=== PATIENT | male | born 1985 | race Caucasian/White ===

== ENCOUNTER 2022-07-02 06:33 | Inpatient (IN) | payer OTHER, SELFPAY ==
[2022-06-28 09:24] VITALS: BMI 46.6
[2022-07-02] VITALS (12 sets, daily range): BP systolic 116–163; BP diastolic 68–97; PULSE 82–120; RESP 12–95; TEMP 36.2–37.5; O2SAT 5–98; BMI 46.6
[2022-07-02] MEDS: LACTATED RINGERS 1,000 ML 84 ML IV ×2 (07:16→09:34)
[2022-07-02 07:42] LABS: COVID19 -Nasal RAPID Negative (Negative)
--- NOTE | 2022-07-02 07:44 | PM.PREOP ---
Pre-operative Note COVID-19 COVID-19 status: Negative Result date/Date tested (Pos, Neg/Pending): 07/01/22 Criteria for continued procedure: Expected advancement of disease process, Possibility delay results in more complex future surgery or treatment, Increased loss of function, Continuing or worsening of significant or severe pain and Deterioration of the patient's condition or overall health Interval Note History & Physical reviewed/Exam performed by Physician: Yes Changes to H&P: No
[2022-07-02] MEDS: CEFAZOLIN 2 GM/100 ML PREMIX 100 ML IV ×3 (08:00→23:35)
[2022-07-02] MEDS: BUPIVACAINE 0.25% (PF) 30 ML, EPINEPHrine 0.3 MG INJ (08:30)
--- NOTE | 2022-07-02 08:42 | SUR.OPER ---
Prone on spine table, head in foam head support, padded chest and pelvic supports, gel pad at knees, lower legs supported by pillows; nipples, genitalia and toes free of pressure, arms secured on foam padded arm boards at <90 degrees abduction. Tape over blanket at thigh secured to table.
[2022-07-02] MEDS: ACETAMINOPHEN IV 1,000 MG/100 ML VIAL 400 MG IV (09:00)
[2022-07-02] MEDS: BUPIVACAINE LIPOSOME 266 MG/20 ML VIAL INJ (11:30)
--- NOTE | 2022-07-02 11:30 | DI.RAD.S_ITS ---
PROCEDURE: XR LUMBAR SPINE 2-3V INDICATIONS: L4-5, L5-S1 TLIF TECHNIQUE: 2 intraoperative views of the lumbar spine were acquired. COMPARISON: None. FINDINGS: Intraoperative images demonstrate lumbar fusion hardware. IMPRESSION: Lumbar fusion. Dictated by: Sharyn Larry M.D. on 07/02/2022 at 13:18 Transcribed by: FABIAN on 07/02/2022 at 13:18 Approved by: Sharyn Larry M.D. on 07/02/2022 at 16:47
--- NOTE | 2022-07-02 11:57 | P.OP_ITS ---
Operative Date/Time/Diagnoses Date of procedure: 07/02/22 Time of procedure: 07:40 Pre-op diagnosis: 1. L4-5, L5-S1 spondylolisthesis 2. L4-5, L5-S1 spinal stenosis with radiculopathy Post-op diagnosis: same Procedure & Clinicians Procedure: 1. L4-5, L5-S1 Postero-lateral and posterior interbody fusion 2. L4-5, L5-S1 interbody cage placement. 3. L4-5, L5-S1 decompressive laminectomy with bilateral facetecomies 4. L4-5, L5-S1 Posterior segmental instrumentation 5. Mobile of bone marrow from iliac crest 6. Utilization of microsurgical technique and operating microscope 7. Utilization of robotic assisted Navigation Same procedure as scheduled: Yes Indications: Patient has been having chronic back pain and worsening lumbar radiculopathy. Patient failed multiple conservative management with worsening pain weakness and numbness in his lower extremity. Patient has been having difficulty performing activity of daily living. After discussing risks benefits of treatment options, patient elected proceed with surgery. Surgeon: Kapil Roberson Progress Developer: Salena Kramer Click Yes if Unassisted: No Anesthesia Type: General Operative Notes Closure Type: primary Specimen(s): none sent Prosthetic devices, grafts, tissues, transplants, or devices: Globus CREO MIS screws, Rise cages Applied: catheter Estimated Blood Loss (mL): 150 Blood products transfused: none Procedure in detail: Patient was seen in the preoperative area. Risks and benefits of the surgery was discussed with the patient. Informed consent was obtained from the patient and placed in the chart. Surgical site was marked. Patient was taken to the operative room. General anesthesia was administered. Prophylactic antibiotic was given to the patient less than 30 min before the incision was made. Patient was placed into a prone position on the Timmy table. Patient's back was then prepped and draped in the sterile fashion. Time-out was performed at this time. After patient was prepped and draped, patient's PSIS was palpated and marked bilaterally. Small 1 cm incision was made over the PSIS for placement of the reference probes. Two trocar was placed into the PSIS 1 on each side. The reference probe was attached to the trocar of the reference apparatus. At this time the C-arm imaging was used to confirm AP and lateral of L4-L5, L5- S1 vertebrae and merged the C-arm imaging using the Healint robotic navigation system with the CT of the lumbar spine. After successful merging was completed and confirmed, skin marker was used to jayesh out the skin incision using the Healint robotic arm. Bilateral incision was made at this time. Pre templated trajectory was used and guided using the Healint robotic navigation system for bilateral L4, L5, S1 pedicle screw placement. This was done by using the robotic arm to guide the high-speed bur to make a cortical entry point. Next a drill was placed also using the robotic arm and guided using the navigation system drilling partially through bilateral L4, L5 and S1 pedicles. Next L4, L5, S1 pedicle screws it was pre templated and measured was placed onto the power concrete truck driver and inserted into the pedicles bilaterally. After all 6 screws were placed C-arm imaging was taken of both AP and lateral to confirm the placement. Excellent placement of the screws were confirmed and a matched precisely with the pre planned screw placement using the navigation system. MARs retractor was inserted using Fabbeoivation guidence. Globus MARS retractors was placed inside the incision and docked onto the L4 and L5 lamina. Using microsurgical technique and operating microscope, a L4, L5 laminectomy and L4-5, L5-S1 facetectomy was performed using a Kerrison rongeur. Patient was found have severe lateral recess and neural foramen stenosis which was fully decompressed after the laminectomy facetectomy. More than 75% of the facets were removed during the process of decompression rendering L4-5, L5-S1 level grossly unstable and required a fusion procedure at the same time. The disc space at L4-5, L5-S1 was identified, and a total diskectomy was performed at L4- 5, L5-S1 level. The endplates were decorticated using a rasp and shaver. The total diskectomy and decortication was performed at L4-5, L5-S1 level in order to to accomplish a L4-5, L5-S1 fusion. The local bone from the laminectomy and facetectomy was saved for local bone grafting. After the total diskectomy and decortication was completed, Trifecta bone graft material was combined with local bone that was harvested earlier. At this time, a separate skin is incision was made over the iliac crest. A Jamshidi needle was inserted into the iliac crest through a separate skin incision. 5 cc of bone marrow aspiration was obtained through the separate skin incision using a Jamshidi needle from the iliac crest. The bone marrow aspiration was combined with local bone and the Trifecta bone grafting material. The bone grafting material was placed into the L4-5, L5-S1 interbody space a long with a expandable cage. The cage was expanded to its maximum height using the torque limiting screwdriver. The disc preparation as well as the cage insertion were also performed under navigation guidance. After the cage was placed, AP and lateral C-arm imaging was taken to confirm placement of the cage and excellent position was confirmed. Globus MARS retractor was inserted and docked onto the L4-5, L5-S1 posterolateral gutter on the right side. Using the power drill, posterior- lateral decortication was performed at L4-5, L5-S1 level until bleeding cortical bone was identified. The remaining bone grafting material was placed into the L4-5, L5-S1 posterior lateral gutter he order to accomplish posterolateral fusion at the L4-5, L5-S1 level. At this time the tulips were attached to the L4, L5, S1 pedicle screw shanks. After measuring the length of the rods, they were inserted into the tulips of the pedicle screws and locked in place using locking caps and torque limiting screwdriver bilaterally. Total 6 caps and 2 titanium rods was used in order to complete the posterior instrumentation construct. After all the hardware was placed, and confirmed with AP and lateral C-arm imaging, the wound was then irrigated with sterile normal saline and packed with Ray-Sergio gauze for 3 min to accomplish hemostasis. After the gauze was removed the deep fascia was closed with #1 Vicryl suture. The subcutaneous layer was closed with 2-0 Vicryl. The skin was closed with skin elia. Patient tolerated the procedure well. There were no complications. Neuro monitoring system was used to monitor patient's neurologic status throughout entire procedure. There was no disturbance of the neural monitoring signals throughout the case. Complications: none Post-operative Condition: stable Disposition: PACU Plan for aftercare: Admit to inpatient hospital
[2022-07-02] MEDS: OXYCODONE IR 5 MG TABLET PO (12:26)
--- NOTE | 2022-07-02 12:33 | SUR.PHASEI ---
attempted to call report to floor, pt going to 210.
[2022-07-02] MEDS: HYDROMORPHONE 0.5 MG INJ IV ×4 (13:03→19:38)
[2022-07-02] MEDS: hydrOXYzine pamoate 25 MG CAPSULE PO ×2 (13:13→23:34)
[2022-07-02] MEDS: MAGNESIUM HYDROXIDE 30 ML UDC PO (14:27)
[2022-07-02] MEDS: ACETAMINOPHEN 325 MG TABLET 650 MG PO ×2 (14:27→18:45)
[2022-07-02] MEDS: GABAPENTIN 300 MG CAPSULE 900 MG PO (14:27)
[2022-07-02] MEDS: ONDANSETRON 4 MG ODT SL (14:28)
[2022-07-02] MEDS: polyethylene glycoL 3350 17 GM POWD.PACK PO (14:28)
[2022-07-02] MEDS: methocarbamoL 500 MG TABLET 750 MG PO ×2 (14:33→20:26)
[2022-07-02] MEDS: LACTATED RINGERS 1,000 ML 125 ML IV (14:39)
[2022-07-02] MEDS: OXYCODONE IR 5 MG TABLET 10 MG PO ×2 (15:31→18:45)
--- NOTE | 2022-07-02 16:20 | PT.IIE ---
Current Diagnoses Spondylolisthesis, lumbar region (07/02/22) Spinal stenosis, lumbar region with neurogenic claudication (07/02/22) Surgery Performed Operation Date: 07/02/22 07:45 Actual Procedures p L4-5, L5-S1 TLIF w. posterior instrumentation -Robot - Kapil Roberson MD Surgical History (Last Updated 06/28/22 @ 10:15 by Lesia Chadwick, RN) Hx of appendectomy Hx of arthroscopy of left knee Hx of cholecystectomy Transgender with history of gender affirmation surgery (2018) Medical History (Last Updated 06/28/22 @ 10:33 by Lesia Chadwick RN) Anesthesia complication Anxiety Asthma Complex posttraumatic stress disorder Eczema Fibromyalgia Gout History of COVID-19 (04/2021) HLD (hyperlipidemia) HTN (hypertension) IBS (irritable bowel syndrome) Neck pain VIELKA (obstructive sleep apnea) Sciatica Spinal stenosis Physical Therapy Inpatient Evaluation/Re-Eval M1 PT/OT-IP Prior Functional Status Start: 07/02/22 15:53 Freq: NEEDED Status: Active Protocol: Document 07/02/22 16:20 AW (Rec: 07/02/22 16:43 AW [id number]) Medical Review Prior Functional Status Medical History Reviewed Yes Communication WNL Mobility and Gait Independent but with a limp occasionally Activities of Daily Living and IADL's Independent except for needing occasional assist with lower body dressing Social History Household Members spouse Living Arrangements House Number of Floors (Floors) One Floor Home Environment Standard Height Toilet,Walk in Shower,Ramp Home Equipment Front Wheel Walker,Straight Cane,Grab Bars In Shower Employment Status [employer] Employed Additional Social History Comment Pt lives with his spouse, Oscar, who has taken two weeks off to assist after surgery. 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 M2 PT-IP Current Condition Start: 07/02/22 15:53 Freq: NEEDED Status: Active Protocol: Document 07/02/22 16:20 AW (Rec: 07/02/22 16:43 AW [id number]) Physical Therapy Current Condition Current Condition Evaluation Date 07/02/22 Treatment Diagnosis s/p L4-5 L5-S1 TLIF Onset Date 06/2422 M3 PT-IP Subjective Start: 07/02/22 15:53 Freq: NEEDED Status: Active Protocol: Document 07/02/22 16:20 AW (Rec: 07/02/22 16:43 AW [id number]) Subjective Physical Therapy Visit Type Type Initial Evaluation Visit Start Time 15:59 Visit Stop Time 16:20 Total Visit Minutes 21 Physical Therapy Visit Comments Patient Comments Pt would like to get out of bed Therapy Pain Assessment Pain When Pain Assessed During Mobility Pain Present Pain Present Pain Reported Location back Scale Used 5 Description With Movement Pain Management Techniques Distraction,Re-positioning, Timing of Activity with Medications M4 PT-IP Mobility and Gait Start: 07/02/22 15:53 Freq: NEEDED Status: Active Protocol: Document 07/02/22 16:20 AW (Rec: 07/02/22 16:43 AW [id number]) PT-Bed Mobility Assessment Rolling Type of Rolling Log Rolling,Roll to Left Level of Assist Minimal Assistance,1 Person Assistance Supine to Sit Supine to Sit Contact Guard Assistance Scooting Scooting to Edge of Bed Standby Assistance PT-Transfer Assessment Sit to and From Stand Sit to and from Stand Standby Assistance,Use of Upper Extremities Equipment Transfer Assistive Device Front Wheeled Walker Orthotic/Prosthetic Devices or Brace: No Transfers Transfer Destination Chair Transfer Technique Stand Step Pivot Transfer Ability Level of Assist Standby Assistance Comments Mobility Comments Pt was lying in bed with his at bedside. He was agreeable to PT assessment. Educated pt and his spouse on post op precautions and log roll technique. Pt needed min A to log roll to his left side and CGA to transition from sidelying to sitting. Pt was able to scoot forward using UE push. He stood SBA and used FWW to steady himself. He walked toward the window with FWW and then around the room with good awareness of all precautions. He sat on the chair and then demonstrated good hip hinge form during another rep of sit <> stand. Pt was left in the chair with call light handy. Gait Assessment Gait Gait Assistance Required: Standby Assistance Distance (Feet) 40 Assistive Devices Assistive Device Front Wheeled Walker Gait Deviations General Gait Pattern Antalgic,Decreased Stride Length,Decreased Feet Clearance Factors Limiting Gait Function Factors Limiting Gait Function Pain Stair Climbing Assessment Comments Stair Climbing Comments Not assessed. Pt has ramped entry at home. PT-Balance Assessment Sitting Balance and Reactions Static Sitting Balance Ability Good Dynamic Sitting Balance Ability Good Standing Balance and Reactions Static Standing Balance Ability Good Dynamic Standing Balance Ability Good Device Used FWW M5 PT-IP Objective Assessments Start: 07/02/22 15:53 Freq: NEEDED Status: Active Protocol: Document 07/02/22 16:20 AW (Rec: 07/02/22 16:43 AW [id number]) Orientation Orientation/Cognition Level of Alertness Alert Orientation Name,Day of Week,Place, Situation Language Function Ability No Deficits Noted Memory Description No Deficits Noted Gross Range of Motion Upper Extremity ROM Assessment Within Functional Limits Lower Extremity ROM Assessment Within Functional Limits Strength Upper Extremity Strength Assessment Within Functional Limits Lower Extremity Strength Assessment Within Functional Limits Sensation Assessment Sensation Gross Sensation WNL M6 PT-IP Treatment Start: 07/02/22 15:53 Freq: NEEDED Status: Active Protocol: Document 07/02/22 16:20 AW (Rec: 07/02/22 16:43 AW [id number]) Physical Therapy Treatment Education Education Provided Precautions,Post-Op Packet, Safety M7 PT-IP Assessment and Plan Start: 07/02/22 15:53 Freq: NEEDED Status: Active Protocol: Document 07/02/22 16:20 AW (Rec: 07/02/22 16:43 AW [id number]) PT Summary Assessment and Plan Potential Rehabilitation Potential Excellent Summary Impairments Pain,Bed Mobility,Transfers, Gait Assessment Summary Carlos is a 36 yo man seen for PT evaluation on POD0 following L4-5 L5-S1 TLIF. He is independent in all regards at baseline. CLOF: Pt benefitted from cues and assist to complete log roll bed mobility. All other transfers and gait were grossly SBA with FWW. Pt tends to use the walker for stability and is not doing excessive UE weightbearing. He occasionally lifts the walker to carry it past obstacles. Pt would benefit from one or two more acute PT sessions to reinforce log roll technique and to ensure smooth mobility progression toward recommended return home with spouse support. Goals Bed Mobility Goal Standby Assistance Transfer Goal Independent,Front Wheeled Walker Gait Goal Independent,Front Wheel Walker Gait Distance 200 Days to Meet Goals 2 Frequency of Treatment Frequency Of Treatment Twice a Day Treatment Plan Physical Therapy Treatment Plan Bed Mobility Training,Transfer Training,Gait Training, Therapeutic Exercise,Balance Retraining,Hot or Cold Pack, Neuromuscular Re-ed Other Recommendations and Next Treatment bed mobility practice (in and Focus out, possibly to right and left depending on home set up) ; progress gait distance with or without FWW Precautions Lumbar Precautions Log Roll,No Twisting,Limit Bending,Lifting Restriction of 10 lbs,Gait Belt above Incisional Area Recommendations To Nursing Amount of Assist Needed Standby Assistance Discharge Recommendations PT Discharge Recommendations Home with Assistance Transportation Needs at Discharge Private Vehicle
--- NOTE | 2022-07-02 19:50 | PC.NURSE ---
1300: new admit from PACU s/p TLIF L4-L5-S1 patient tearful, reporting pain 8/10 spo2 88% RA, o2 applied to get sats up to 95%. IVF LR at 125/hour. bandage to back is CDI, no shadow drainage. call to dr holman to request Oxy 10mg as this was given in pacu. new order received. pain controlled w/ PO oxy, robaxin, gabapentin, and dilauded IVP. henriquez is patent draining large amount of yellow urine to gravity. herb is in the room and staying over night. PT assisted patient out of bed, SBA w/ FWW. 1700: pain well controlled, patient is doing well. requesting dc henriquez, ability to be independant OOB. encouraged him to wait til OOB a few more times. tolerating RA. report to NOC.
[2022-07-02] MEDS: BUSPIRONE 5 MG TABLET 15 MG PO (20:15)
[2022-07-02] MEDS: VENLAFAXINE ER 75 MG CAP 225 MG PO (20:16)
[2022-07-02] MEDS: DOCUSATE 100 MG CAPSULE PO (20:16)
[2022-07-02] MEDS: MIRTAZAPINE 15 MG TABLET PO (20:17)
[2022-07-02] MEDS: ATORVASTATIN 20 MG TABLET 40 MG PO (20:17)
[2022-07-02] MEDS: TRAZODONE 50 MG TABLET 100 MG PO (20:17)
[2022-07-02] MEDS: SENNOSIDES 8.6 MG TABLET 17.2 MG PO (20:18)
[2022-07-02] MEDS: MELOXICAM 7.5 MG TABLET 15 MG PO (20:18)
[2022-07-02] MEDS: lisinopriL 10 MG TABLET PO (20:19)
[2022-07-02] MEDS: METOPROLOL ER 50 MG TABLET PO (20:19)
[2022-07-02] MEDS: PANTOPRAZOLE DR 40 MG TABLET PO (20:20)
[2022-07-02] MEDS: OXYCODONE IR 5 MG TABLET 15 MG PO (21:02)
[2022-07-02] MEDS: HYDROMORPHONE 1 MG INJ IV (23:31)
[2022-07-03 00:47] VITALS: BP 103/57; PULSE 90; RESP 18; TEMP 37.1; O2SAT 93
[2022-07-03 00:52] VITALS: BP 103/57; PULSE 90
[2022-07-03] MEDS: OXYCODONE IR 5 MG TABLET 15 MG PO ×4 (02:12→11:42)
[2022-07-03 04:00] VITALS: BP 129/64; PULSE 77; RESP 18; TEMP 36.9; O2SAT 96
[2022-07-03] MEDS: ACETAMINOPHEN 325 MG TABLET 650 MG PO (05:15)
[2022-07-03 06:04] LABS: Hematocrit 33.1 % (41-53); Hemoglobin 11.6 g/dL (13.5-17.5)
[2022-07-03] MEDS: methocarbamoL 500 MG TABLET 750 MG PO (06:13)
--- NOTE | 2022-07-03 07:59 | PM.DS.1 ---
History of Present Illness History of Present Illness Chief complaint: TLIF Narrative: Patient is sitting up in bed this morning with significant other at bedside. States that he has been doing well other than a peak in pain last night which was well controlled with medication. He states that he still has some bilateral thigh numbness though he denies any other symptoms. States that he would like to go home today if physical therapy goes well. Discharge Providers Provider Date of admission: 07/02/22 06:33 Discharge Date: 07/03/22 Primary care physician: Doctor Elizabeth MD Consults: 07/02/22 12:54 Consult to Occupational Therapy Evaluate & Treat Comment: Physician Instructions: Evaluate and treat Consult to Physical Therapy Evaluate & Treat Comment: Physician Instructions: Evaluate and Treat Discharge provider: Salena Kramer PA-C Summary Hospital Course Discharge Diagnosis: Status post TLIF Hospital Course: Operative Date/Time/Diagnoses Date of procedure: 07/02/22 Time of procedure: 07:40 Pre-op diagnosis: 1. L4-5, L5-S1 spondylolisthesis 2. L4-5, L5-S1 spinal stenosis with radiculopathy Post-op diagnosis: same Procedure & Clinicians Procedure: 1. L4-5, L5-S1 Postero-lateral and posterior interbody fusion 2. L4-5, L5-S1 interbody cage placement. 3. L4-5, L5-S1 decompressive laminectomy with bilateral facetecomies 4. L4-5, L5-S1 Posterior segmental instrumentation 5. [place] of bone marrow from iliac crest 6. Utilization of microsurgical technique and operating microscope 7. Utilization of robotic assisted Navigation Same procedure as scheduled: Yes Indications: ?Patient has been having chronic back pain and worsening lumbar radiculopathy. Patient failed multiple conservative management with worsening pain weakness and numbness in his lower extremity.? Patient has been having difficulty performing activity of daily living.? After discussing risks benefits of treatment options, patient elected proceed with surgery. Surgeon: Kapil Roberson Char Filter Tank Tender Head: Salena Kramer Click Yes if Unassisted: No Anesthesia Type: General Operative Notes Closure Type: primary Specimen(s): none sent Prosthetic devices, grafts, tissues, transplants, or devices: Globus CREO MIS screws, Rise cages Applied: catheter Estimated Blood Loss (mL): 150 Blood products transfused: none Exam Vital Signs (past 8 hours): - 07/03/22 00:47 07/03/22 00:52 07/03/22 04:00 Temperature 98.7 F 98.4 F Pulse Rate 90 90 77 Respiratory Rate 18 18 Blood Pressure 103/57 L 103/57 L 129/64 Pulse Oximetry 93 96 Oxygen Flow Rate 1 1 Oxygen Delivery Method Room Air Oxygen Flow Rate 1 Narrative Exam Narrative: Awake alert and oriented. Intraoperative dressing clean, dry, and intact with small area of serosanguineous drainage distally. Strength and sensation intact bilateral lower extremities, subjective numbness to bilateral thighs. Bilateral calves soft, compressible, nontender with no palpable cords or masses. Objective Labs 07/03/22 05:38 Labs: Laboratory Results - last 24 hr 07/03/22 05:38 Hgb 11.6 L Hct 33.1 L PFSH Medical History Anesthesia complication Anxiety Asthma Complex posttraumatic stress disorder Eczema Fibromyalgia Gout History of COVID-19 (04/2021) HLD (hyperlipidemia) HTN (hypertension) IBS (irritable bowel syndrome) Neck pain VIELKA (obstructive sleep apnea) Sciatica Spinal stenosis Surgical History Hx of appendectomy Hx of arthroscopy of left knee Hx of cholecystectomy Transgender with history of gender affirmation surgery (2018) Social History household members: spouse Smoking Status: Former smoker alcohol intake: current Discharge Assessment & Plan Assessment and Plan Assessment: Patient is progressing as expected after TLIF Plan of Treatment: Plan to work with physical therapy today. Discharge to home with assistance from significant other when safe and cleared by PT. patient will be discharged with 5 mg oxycodone ordered Q4-6. He may take 1-2 tablets every 4-6 hours. Patient to follow-up with orthopedics 2 weeks after surgery. Discharge Plan Discharge Plan Patient Disposition: Home Provider Discharge Comment: Discharge once safe and cleared by PT Discharge orders & Medications Prescriptions: New oxycodone 5 mg tablet 5 mg PO Q4-6H PRN (Reason: pain) Qty: 40 0RF Continued atorvastatin 40 mg Tablet 40 mg PO BEDTIME metoprolol succinate 50 mg Tablet Extended Release 24 Hr 50 mg PO BEDTIME meloxicam 15 mg Tablet 15 mg PO BEDTIME trazodone 100 mg Tablet 100 mg PO BEDTIME pantoprazole [Protonix] 40 mg Tablet,Delayed Release (Dr/Ec) 40 mg PO BEDTIME lisinopril 10 mg Tablet 10 mg PO BEDTIME testosterone cypionate [Depo-Testosterone] 200 mg/mL Oil 200 mg IM Q2W buspirone 15 mg Tablet 15 mg PO BEDTIME venlafaxine 225 mg Tablet Extended Release 24hr 225 mg PO BEDTIME gabapentin 300 mg Capsule 900 mg PO TID PRN (Reason: Nerve pain) mirtazapine 15 mg Tablet 15 mg PO BEDTIME albuterol sulfate 90 mcg/actuation Hfa Aerosol Inhaler 2 puff INHALATION Q4-6H PRN (Reason: Shortness Of Breath) methocarbamol 750 mg Tablet 750 mg PO Q4H PRN (Reason: Pain) Qty: 40 0RF Follow up/Referrals: Kapil Roberson MD [Physician] - As previously scheduled Doctor Johnson MD [Primary Care Provider] - Diet/Activity/Treatments Diet: Diet as Tolerated Activity: No deep bending, twisting, no lifting over 10 lb. Skin/Wound/Dressing Care Report to your healthcare provider any signs of infection, such as:: chills, fever, night sweats, unusual drainage and unusual redness Dressing: Keep dressing clean, dry, and intact until 2 week follow up with Orthopedics. Visit Report/Discharge Packet Instructions: DI for Transforaminal Lumbar Interbody Fusion Stand Alone Forms: Patient Portal/API, Stroke Signs & Symptoms, Surgery Discharge Discharge Data Primary Care Provider: Doctor Elizabeth Quality VTE Deep Vein Thrombosis/Pulmonary Embolism Present on Admission: No
[2022-07-03 08:00] VITALS: BP 111/71; PULSE 86; RESP 17; TEMP 36.4; O2SAT 96
[2022-07-03] MEDS: DOCUSATE 100 MG CAPSULE PO (08:37)
--- NOTE | 2022-07-03 08:55 | PT.IPTN ---
Current Diagnoses Spondylolisthesis, lumbar region (07/02/22) Spinal stenosis, lumbar region with neurogenic claudication (07/02/22) Surgery Performed Operation Date: 07/02/22 07:45 Actual Procedures p L4-5, L5-S1 TLIF w. posterior instrumentation -Robot - Kapil Roberson MD Physical Therapy Treatment Note M2 PT-IP Current Condition Start: 07/02/22 15:53 Freq: NEEDED Status: Active Protocol: Document 07/02/22 16:20 AW (Rec: 07/02/22 16:43 AW [id number]) Physical Therapy Current Condition Current Condition Evaluation Date 07/02/22 Treatment Diagnosis s/p L4-5 L5-S1 TLIF Onset Date 06/2422 M3 PT-IP Subjective Start: 07/02/22 15:53 Freq: NEEDED Status: Active Protocol: Document 07/03/22 09:18 TS (Rec: 07/03/22 09:39 TS [id number]) Subjective Physical Therapy Visit Type Type Treatment Note Visit Start Time 08:55 Visit Stop Time 09:10 Total Visit Minutes 15 Notes Spouse in room. Number of ALL SOURCE ANALYST Visits 1 Physical Therapy Visit Comments Patient Comments Pt reports having some pain, decreases with standing and walking. Has been up with nursing to use the bathroom. Pt agreeable to PT session. Therapy Pain Assessment Pain When Pain Assessed During Mobility Pain Present Pain Present Pain Reported Location back Description With Movement Pain Management Techniques Distraction,Re-positioning, Timing of Activity with Medications M4 PT-IP Mobility and Gait Start: 07/02/22 15:53 Freq: NEEDED Status: Active Protocol: Document 07/03/22 09:18 TS (Rec: 07/03/22 09:39 TS [id number]) PT-Transfer Assessment Sit to and From Stand Sit to and from Stand Standby Assistance,Use of Upper Extremities Equipment Transfer Assistive Device Front Wheeled Walker Orthotic/Prosthetic Devices or Brace: No Transfer Ability Level of Assist Standby Assistance Comments Mobility Comments Pt found resting in chair, agreeable to PT session. Pt performed sit to stand x1 SBA w/BUE support on arms of chair , donned shorts with no AD. Pt ambulated ~300' in hallway SBA with step thru gait with good posture and recognition of spinal precautions, no LOB or buckling noted. Pt performed stand to sit SBA with BUE support on arms of chair. Pt was left in chair with spouse in room, call light nearby. Gait Assessment Gait Gait Assistance Required: Standby Assistance Distance (Feet) 300 Assistive Devices Assistive Device Front Wheeled Walker Orthotic/Prosthetic Devices or Brace: No Gait Deviations General Gait Pattern Decreased Stride Length, Decreased Feet Clearance Factors Limiting Gait Function Factors Limiting Gait Function Pain Comments Gait Comments See mobility comments. Stair Climbing Assessment Comments Stair Climbing Comments Not assessed. Pt has ramped entry at home. PT-Balance Assessment Sitting Balance and Reactions Static Sitting Balance Ability Good Dynamic Sitting Balance Ability Good Standing Balance and Reactions Static Standing Balance Ability Good Dynamic Standing Balance Ability Good Device Used FWW M5 PT-IP Objective Assessments Start: 07/02/22 15:53 Freq: NEEDED Status: Active Protocol: Document 07/02/22 16:20 AW (Rec: 07/02/22 16:43 AW [id number]) Orientation Orientation/Cognition Level of Alertness Alert Orientation Name,Day of Week,Place, Situation Language Function Ability No Deficits Noted Memory Description No Deficits Noted Gross Range of Motion Upper Extremity ROM Assessment Within Functional Limits Lower Extremity ROM Assessment Within Functional Limits Strength Upper Extremity Strength Assessment Within Functional Limits Lower Extremity Strength Assessment Within Functional Limits Sensation Assessment Sensation Gross Sensation WNL M6 PT-IP Treatment Start: 07/02/22 15:53 Freq: NEEDED Status: Active Protocol: Document 07/03/22 09:18 TS (Rec: 07/03/22 09:39 TS [id number]) Physical Therapy Treatment Education Education Provided Precautions,Post-Op Packet, Safety M7 PT-IP Assessment and Plan Start: 07/02/22 15:53 Freq: NEEDED Status: Active Protocol: Document 07/03/22 09:18 TS (Rec: 07/03/22 09:39 TS [id number]) PT Summary Assessment and Plan Potential Rehabilitation Potential Excellent Status of Condition at Evaluation Evolving Summary Impairments Pain,Bed Mobility,Transfers, Gait Assessment Summary Pt progressed ambulation distance to ~300' SBA this afternoon, no signs of buckling or LOB. Pt recalled 3 /3 spinal precautions and demonstrated good awareness throughout treatment. PT recommends pt return home with assist from spouse. Pt has support from spouse and all DME needs to be successful at home. Goals Bed Mobility Goal Standby Assistance Transfer Goal Independent,Front Wheeled Walker Gait Goal Independent,Front Wheel Walker Gait Distance 200 Days to Meet Goals 2 Frequency of Treatment Frequency Of Treatment Twice a Day Treatment Plan Physical Therapy Treatment Plan Bed Mobility Training,Transfer Training,Gait Training, Therapeutic Exercise,Balance Retraining,Hot or Cold Pack, Neuromuscular Re-ed Other Recommendations and Next Treatment bed mobility practice (in and Focus out, possibly to right and left depending on home set up) ; progress gait distance with or without FWW Precautions Lumbar Precautions Log Roll,No Twisting,Limit Bending,Lifting Restriction of 10 lbs,Gait Belt above Incisional Area Recommendations To Nursing Amount of Assist Needed Standby Assistance Discharge Recommendations PT Discharge Recommendations Home with Assistance Transportation Needs at Discharge Private Vehicle
--- NOTE | 2022-07-03 09:26 | CM.DANOTE ---
Case received, EMR reviewed and met with patient. Spouse, Oscar, was at bedside. Introduced self and role. Was able to obtain information regarding patient's baseline activity status prior to surgery. DCP assessment completed with information currently available. Patient is a 36 year old male who admitted yesterday morning to the care of the orthopedic team. PCP: Unknown at this time. Payer: confirmed: [employer]. Patient came to the hospital via private vehicle for a surgical procedure. He had L4-5, L5-S1 postero-lateral and posterior interbody fusion. Patient has history of spinal stenosis. Met with patient and spouse. He was sitting up in his chair, alert and oriented. Confirmed that he is independent at baseline. He and spouse both reside in [place]. he is employed at [employer]. Patient worked with [employer] yesterday. P: Patient is to be discharged home today, he will work again with P.T. prior to discharge. Steph Hill RN/Transmission Operator Discharge Planning/Care Management CM Discharge Assessment Start: 07/03/22 09:25 Freq: Status: Active Protocol: Document 07/03/22 09:25 (Rec: 07/03/22 09:26 [id number]) Discharge Planning Assessment Assigned Plumbing Installer Steph Hill RN/Transmission Operator Advance Directives? No History Provided By Patient,Medical Record Prior Living Arrangements House Household Members spouse Type of transporation used prior to Drives own vehicle admit Independent with ADL's Yes Is patient alert and oriented? Yes Caregiver for Another No Barriers to Discharge No Discharge Plan Home Transportation Arrangement Spouse Referrals Initiated None needed Whiteboard Updated in Patient Room with Yes name and ext. # of Plumbing Installer Review Status In Process Next Review Type Continued Stay Review Pre-Anesthesia Assessment Start: 06/28/22 09:24 Freq: Status: Active Protocol: Document 06/28/22 09:24 CAB (Rec: 06/28/22 10:33 CAB [id number]) Pre-Anesthesia Assessment Patient Information Reviewed Via Phone Assessment Assessment Completed With Patient Diagnostic Results BMP/CMP,CBC,EKG Comment Outside labs/EKG scanned Primary Care Provider Gwendolyn Justice Seen Specialist in Last 12 Months Yes Specialist Seen Orthopedist,Wireless Telegrapher Primary Language Ukrainian Masonry Contractor Required No Height 5 ft 2 in Weight 255 lb Body Mass Index (BMI) 46.6 Hearing Ability Normal Visual Impairment No Limitations Visual Assist None Dentition Type Teeth, Natural Present,Teeth, Missing Barriers to Learning None Hx Anesthesia Reactions Yes: PONV-scopolamine patch has worked well in the past Hx Family Anesthesia Reaction No Hx Malignant Hyperthermia No Hx Blood Transfusions No Anesthesia Review Requested No Ict Quality Assurance Engineer No alcohol intake current alcohol intake frequency holidays/special occasions only Alcohol Intake Frequency Other: Hx of heavy drinking, sober x 1 year Smoking Status Former smoker Tobacco type cigarettes how long ago did patient quit smoking Quit approx 14 years ago Substance Use Type marijuana Comment Pt advised not to smoke marijuana 24 hours prior Pain Present Pain Reported Musculoskeletal Symptoms Abnormal Gait,Back Pain, Difficulty Walking,Muscle Spasms,Neck Pain,Radiating Pain into Limb History of Falling (Recent or History of No ) Patient is completely paralyzed or No completely immobile Mental Status Oriented to own ability Is patient on oxygen? No Does patient have VANCE/SOB Yes: Asthma, well controlled per pt Hx Sleep Apnea Yes: Pt states improved when stopped drinking Currently Taking a Beta Carley Yes: Metoprolol Can You Climb a Flight of Stairs Without Yes SOB Hx Chest Pain No Hx SOB Yes: Asthma, well controlled per pt Hx Syncope or Dizziness No Anti-Coagulant Therapy No Has a Excellence Specialist No Cardiac Testing No Hx Pacemaker/ICD No Pacemaker Rep Required? No Cardiac Clearance Received Not Applicable Diet Type At Home Regular Dysphagia No Gastrointestinal Symptoms Diarrhea Chronic UTI No Urinary Catheter Present No Hx Urinary Self Catheterization No Diabetes No HgbA1C 6.2 Date 06/13/22 Hx Drug Resistant Organism No Presence of External or Internal Medical No Devices Have you had any close contact with No someone diagnosed with COVID-19? Received a COVID vaccine? Yes Received all doses? Yes Marital Status Lives With spouse Current Living Arrangements Mobile home Number of Floors (Floors) One Floor Number of Stairs To Enter/Railing? No steps, there is a ramp Support System Spouse Does the Patient Have Assistance After Yes Surgery Patient Discharge Plan Description Return Home Comment Pt advised 2-3 day length of stay per surgeon Feels Safe in Current Environment Yes Been Physically Hurt or Threatened By a No Person in Current Environment Do you have thoughts of harming yourself None or others? Are you currently considering suicide? No Do you have a plan to hurt yourself or No Plan others? Do You Have Any Spiritual Beliefs That No May Affect Your HC Choices? Do You Have Any Cultural Practices That No May Affect Your HC Choices? Who Can We Speak to About Patient's Care Family, friends Identifying Code for Release of Patient Declines to issue Information Health Care Proxy/Next of Kin Oscar () Health Care Proxy Emergency Contact Name Oscar () Emergency Contact Advance Directives? No Power of Sound Engineering Technician No PAC Instructions Durable medical equipment, Medications to take/avoid, Nasal antibiotic,No ETOH/ petroleum product on skin DOS, NPO,Post-op transportation,Pre -surgical wash,Sturdy shoes/ comfortable clothes,Do not bring valuables and remove jewelry
--- NOTE | 2022-07-03 09:30 | OT.IP.EVAL ---
Current Diagnoses Spondylolisthesis, lumbar region (07/02/22) Spinal stenosis, lumbar region with neurogenic claudication (07/02/22) Surgery Performed Operation Date: 07/02/22 07:45 Actual Procedures p L4-5, L5-S1 TLIF w. posterior instrumentation -Robot - Kapil Roberson MD Past Medical History (Last Updated 06/28/22 @ 10:33 by Lesia Chadwick, RN) Anesthesia complication Anxiety Asthma Complex posttraumatic stress disorder Eczema Fibromyalgia Gout History of COVID-19 (04/2021) HLD (hyperlipidemia) HTN (hypertension) IBS (irritable bowel syndrome) Neck pain VIELKA (obstructive sleep apnea) Sciatica Spinal stenosis Surgical History (Last Updated 06/28/22 @ 10:15 by Lesia Chadwick, RN) Hx of appendectomy Hx of arthroscopy of left knee Hx of cholecystectomy Transgender with history of gender affirmation surgery (2018) Occupational Therapy Inpatient Evaluation/Re-Eval M1 PT/OT-IP Prior Functional Status Start: 07/02/22 15:53 Freq: NEEDED Status: Active Protocol: Document 07/02/22 16:20 AW (Rec: 07/02/22 16:43 AW [id number]) Medical Review Prior Functional Status Medical History Reviewed Yes Communication WNL Mobility and Gait Independent but with a limp occasionally Activities of Daily Living and IADL's Independent except for needing occasional assist with lower body dressing Social History Household Members spouse Living Arrangements House Number of Floors (Floors) One Floor Home Environment Standard Height Toilet,Walk in Shower,Ramp Home Equipment Front Wheel Walker,Straight Cane,Grab Bars In Shower 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 M1 PT/OT-IP Prior Functional Status Start: 07/03/22 09:31 Freq: NEEDED Status: Active Protocol: Document 07/03/22 09:15 CCC (Rec: 07/03/22 09:40 CCC [id number]) Medical Review Prior Functional Status Medical History Reviewed Yes Communication WNL Mobility and Gait Independent but with a limp occasionally Activities of Daily Living and IADL's Independent except for needing occasional assist with lower body dressing Social History Household Members spouse Living Arrangements House Number of Floors (Floors) One Floor Home Environment Standard Height Toilet,Walk in Shower,Ramp,Bidet Home Equipment Front Wheel Walker,Straight Cane,Hand Held Shower,Long Handled Shoe Horn,Maintenance Engineer Oil [employer],Sock Aid,Grab Bars In Shower 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 M2 OT-IP Current Condition Start: 07/03/22 09:31 Freq: Status: Active Protocol: Document 07/03/22 09:15 [facility] (Rec: 07/03/22 09:40 [facility] [id number]) Occupational Therapy Current Condition Current Condition Evaluation Date 07/03/22 Treatment Diagnosis S/p L4-5, L5-S1 TLIF Diagnosis Onset Date 07/02/22 Post Operative Precautions Lumbar Precautions Log Roll,No Twisting,Limit Bending,Lifting Restriction of 10 lbs,Gait Belt above Incisional Area M3 OT- IP Subjective and Pain Start: 07/03/22 09:31 Freq: Status: Active Protocol: Document 07/03/22 09:15 [facility] (Rec: 07/03/22 09:40 [facility] [id number]) OT- Subjective Occupational Therapy Visit Type Type Initial Evaluation Visit Start Time 09:15 Visit Stop Time 09:30 Total Visit Minutes 15 Occupational Therapy Visit Comments Patient Comments Pt agreed to get up and his was present for OT eval. Patient/Caregiver Goals TO go home. OT Pain Assessment Pain When Pain Assessed At Rest Pain Present Pain Present Denied Pain M4 OT- IP ADL's Start: 07/03/22 09:31 Freq: Status: Active Protocol: Document 07/03/22 09:15 [facility] (Rec: 07/03/22 09:40 [facility] [id number]) OT JPX-Flpa-Hiwjdit General Evaluation Self-Feeding Ability Independent OT ADL-Grooming General Evaluation Grooming Ability Standby Assistance Comments OT Grooming Comments Able to do while standing with FWW in front of the sink. OT ADL-Oral Care General Eval Oral Care Ability Independent OT ADL-Dressing General Eval Lower Body Dressing Ability Maximum Assistance Areas Needing Assistance Pants/Shorts,Socks Comments OT Dressing Comments Pt has sock aid and bread molder to be able to assist with his needs, otherwise his to assist. OT ADL-Toileting Comments OT Toileting Comments Pt has a bidet at home. OT ADL-Bathing Comments OT Bathing Comments Suggested may be best to have a shower chair at home to use for safety. Educated about covering his back with plastic/press n seal and tape to prevent for his bandage from getting wet. M6 OT- IP Functional Cognition Start: 07/03/22 09:31 Freq: Status: Active Protocol: Document 07/03/22 09:15 [facility] (Rec: 07/03/22 09:40 [facility] [id number]) Cognitive Factors Limiting Selfcare Function Cognitive Ability Level of Alertness Alert Patient Orientation Name,Place,Situation Attention Span Ability Capable of Focused Attention, Capable of Sustained Attention Ability to Follow Commands Able to Follow Multi-Step Commands Cognitive Comments Cognitive Assessment Comments Pt intact, occasionally needing reminders not to carry the FWW and just push it. M7 OT- IP Mobility and Balance Start: 07/03/22 09:31 Freq: Status: Active Protocol: Document 07/03/22 09:15 [facility] (Rec: 07/03/22 09:40 [facility] [id number]) OT-Transfer Assessment Sit to and From Stand Sit to and from Stand Standby Assistance Transfers Transfer Ability Standby Assistance Technique Transfer Destination Chair Comments Mobility Comments SBA with FWW, pt tends to use his BUE to walk himself up with his arms on the armrests of the recliner to get to standing. OT- Balance Assessment Sitting Balance and Reactions Static Sitting Balance Ability Normal Dynamic Sitting Balance Ability Good Standing Balance and Reactions Static Standing Balance Ability Good Dynamic Standing Balance Ability Fair M9 OT- IP Assessment and Plan Start: 07/03/22 09:31 Freq: Status: Active Protocol: Document 07/03/22 09:15 [facility] (Rec: 07/03/22 09:40 [facility] [id number]) OT Summary Assessment and Plan Potential Rehabilitation Potential Excellent Analytic Complexity at Evaluation Low Summary OT Impairments Functional Mobility,Dressing, Bathing Progress Towards Goals Progressing Toward Goals Assessment Summary Pt low complexity and doing well. Pt has a supportive to be able to stay and assist him for all his ADl and mobility needs as needed. Pt to go home with assist. Pt would benefit from a shower chair and to have the ctas stay out of the bedroom. Goals Dressing Goal Independent Toileting Goal Independent Bathing Goal Standby Assistance Toilet Transfer Goal Independent Shower Transfer Goal Standby Assistance Days to Meet Goals 2 Frequency of Treatment Frequency Of Treatment Once a Day Treatment Plan OT Treatment Plan ADL Training,Functional Mobility,Patient/Family Education,Discharge Planning Discharge Recommendations OT Discharge Recommendations Home with Assistance Home Equipment Needs shower chair Transportation Needs at Discharge Private Vehicle
--- NOTE | 2022-07-03 12:42 | PC.NURSE ---
Discharge Note Patient A&O, VSS, RA, no complaints of pain/discomfort. Patient agreeable to discharge plan. All questions/concerns addressed. PIV discontinued. Patient able to dress self and pack all belongings. Patient taken via wheelchair to POV.
== END 2022-07-03 12:30 | disposition home or self-care (01) | DRG 455 ==
PROVIDERS: Admitting Provider Orthopaedic Surgery Orthopaedic Surgery of the Spine; Referring Provider Orthopaedic Surgery Orthopaedic Surgery of the Spine; Visit Provider Orthopaedic Surgery Orthopaedic Surgery of the Spine
PROC: 0SG00AJ Fusion of Lumbar Vertebral Joint with Interbody Fusion Device, Posterior Approach, Anterior Column, Open Approach (ICD-10-PCS; principal; 2022-07-02 07:45)
DX: M43.17 Spondylolisthesis, lumbosacral region (principal); M48.061 Spinal stenosis, lumbar region without neurogenic claudication; M48.07 Spinal stenosis, lumbosacral region; M54.17 Radiculopathy, lumbosacral region; M54.16 Radiculopathy, lumbar region; E78.5 Hyperlipidemia, unspecified; I10 Essential (primary) hypertension; F41.9 Anxiety disorder, unspecified; Z87.891 Personal history of nicotine dependence; Z20.822 Contact with and (suspected) exposure to COVID-19
CPT/HCPCS: 36415; 72100; 76000; 85014; 85018; 87635; 97116; 97161; 97165; C9803; S2900; C1713; C9290; J0131; J0171; J0330; J0690; J1100; J1170; J2250; J2405; J2704; J3010